=== PATIENT | female | born 1990 | race Caucasian/White ===

== ENCOUNTER 2020-02-23 20:28 | Emergency (ER) | payer OTHER ==
--- NOTE | 2020-02-23 21:15 | ED Physician Documentation ---
History of Present Illness - Stated complaint Stated Complaint: LT EAR PX - Chief complaint Chief Complaint: Heent - History obtained from History obtained from: Patient - History of Present Illness Timing: Prior to arrival, How many days ago (12) - Additonal information Additional information: 30-year-old female comes to the emergency department with about 12 days left ear discomfort. She reports that initially she felt wet or squeaking sensation in the ear and did not think much of it however over the last 4 days the ear has become painful and she has had some associated lymphadenopathy behind her ear. She began using her daughters Neosporin/hydrocortisone eardrops 4 days ago with 3 out relief of symptoms. She denies a history of previous ear infections. No recent swimming or head submersion. She is not a diabetic. No loss of hearing. Review of Systems Constitutional: reports: Reviewed and negative Eyes: reports: Reviewed and negative Ears: reports: Ear pain, Drainage/discharge. denies: Loss of hearing, Tinnitus/ringing, Foreign body Nose: reports: Reviewed and negative Throat: reports: Reviewed and negative Cardiac: reports: Reviewed and negative Respiratory: reports: Reviewed and negative GI: reports: Reviewed and negative : reports: Reviewed and negative PD PAST MEDICAL HISTORY - Past Medical History Past Medical History: No - Past Surgical History Past Surgical History: No - Present Medications Home Medications: Ambulatory Orders Medication Instructions Recorded Confirmed Amoxicillin 500 mg PO TID #30 capsule 02/23/20 - Allergies Allergies/Adverse Reactions: Allergies Allergy/AdvReac Type Severity Reaction Status Date / Time No Known Drug Allergies Allergy Verified 02/23/20 20:44 - Social History Does the pt smoke?: No Smoking Status: Never smoker Does the pt have substance abuse?: No - Immunizations Immunizations are current?: Yes - POLST Patient has POLST: No PD ED PE EXPANDED - General General: Alert, No acute distress - HEENT HEENT: Pharynx normal, Other. No: Tonsillar exudate - Cardiac Cardiac: Regular Rate, Regular Rhythm, Radial strong equal, Cap refill < 2 sec - Respiratory Respiratory: Clear to ausultation mikki. No: Distress, Labored Results - Vitals Vitals: Vital Signs - 24 hr 02/23/20 20:43 Temperature 36.8 C Heart Rate 99 Respiratory 17 Rate Blood Pressure 126/81 H O2 Saturation 100 Oxygen O2 Source Room air PD MEDICAL DECISION MAKING - ED course Complexity details: reviewed results, re-evaluated patient, considered differential, d/w patient ED course: 30-year-old female presents to the emergency department for evaluation of what she believes is a worsening left ear infection. She presumed that she had otitis ex stated lymphadenopathy. On exam I do notice a erythematous left ear canal with a very mild terna due to pain and drainage from the left ear. She has been using her daughter's neomycin/hydrocortisone eardrops for 4 days without resolution of symptoms and she is now beginning to have effusion behind the TM. She does not have malignant otitis externa but does have mild ear canal cellulitis. At this time we will start her on amoxicillin and advised close f/u with pcp Departure - Departure Disposition: 01 Home, Self Care Clinical Impression: Acute effusion of left ear, Cellulitis of left ear canal Condition: Stable Record reviewed to determine appropriate education?: Yes Prescriptions: Amoxicillin 500 mg PO TID #30 capsule Comments: Ana let us have you fill the prescription tomorrow and begin taking the antibiotics. You do not need to continue to use the eardrops anymore as were given you the antibiotics orally. If you have increased pain redness or swelling despite taking the oral antibiotics please return to the emergency department for a second look.
[2020-02-23] MEDS ORDERED: AMOXICILLIN 250 MG CAPSULE PO STA (21:22)
[2020-02-23 21:32] VITALS: BP 124/84
== END 2020-02-23 21:32 | disposition home or self-care (01) ==
LOC: ED 20:28
DX: H92.02 Otalgia, left ear (principal); H60.12 Cellulitis of left external ear
CPT/HCPCS: 99282; 99283; A9270

== ENCOUNTER 2022-07-15 20:13 | Emergency (ER) | payer OTHER ==
--- NOTE | 2022-07-15 22:28 | ED Physician Documentation ---
PD HPI HEENT - Stated complaint Stated Complaint: SINUS PRESSURE/EAR PX - Chief complaint Chief Complaint: Heent - History obtained from History obtained from: Patient - Additional information Additional information: c/o right sinus pain (points to right maxillary sinus area) x 2-3 days. She says she had right-sided facial swelling earlier today but she took benadryl and that seemed to improve the symptoms. She also was experiencing right ear pain; she says earlier today she felt sudden improvement in the right ear pain associated with a small amount of clear fluid discharge from the right ear. She says she also feels that the facial swelling's resolution coincided with the fluid discharge from the right ear. She denies fever. Thinks chances of are unlikely , is on BCP. Denies cough, dyspnea Review of Systems Constitutional: denies: Fever Throat: reports: Sore throat Respiratory: denies: Dyspnea, Cough GI: reports: Reviewed and negative : reports: Control. denies: Dysuria, Frequency PD PAST MEDICAL HISTORY - Past Medical History Past Medical History: No - Past Surgical History Past Surgical History: No - Present Medications Home Medications: Ambulatory Orders Medication Instructions Recorded Confirmed Amoxicillin 500 mg PO TID #30 capsule 02/23/20 Amox/Clav 875/125 [Augmentin 1 tablet PO Q12H 7 Days #14 tablet 07/15/22 875/125 Tab] - Allergies Allergies/Adverse Reactions: Allergies Allergy/AdvReac Type Severity Reaction Status Date / Time No Known Drug Allergies Allergy Verified 07/15/22 20:16 - Social History Does the pt smoke?: No Smoking Status: Never smoker Does the pt have substance abuse?: No - Immunizations Immunizations are current?: Yes - POLST Patient has POLST: No PD ED PE NORMAL - Vitals Vital signs reviewed: Yes - General General: Alert and oriented X 3, No acute distress, Well developed/nourished - HEENT HEENT: Ears normal (no evidence of right TM rupture with good visualization of the TM, normal light reflex, no erythema, no bulging. there is no fluid in the right external auditory canal; left TM WNL. ), Moist mucous membranes, Pharynx benign - Neck Neck: Supple, no meningeal sign - Respiratory Respiratory: No respiratory distress, Clear bilaterally PD ED PE EXPANDED - HEENT HEENT: Other (no facial swelling nor asymmetry. no facial erythema. There is mild/moderate TTP over right maxillary sinus) Results - Vitals Vitals: Oxygen O2 Source Room air PD Medical Decision Making - ED course Complexity details: considered differential, d/w patient ED course: HPI/ROS most c/w right maxillary sinusitis. We discussed options for treatment, specifically antibiotic vs. symptomatic treatment only. She defers to my recommendation, and that is for antibiotic treatment. She is given augmentin in ED and rx for same provided Departure - Departure Disposition: Home, Self Care Clinical Impression: Sinusitis Qualifiers: Sinusitis location: maxillary Chronicity: acute Recurrence: non-recurrent Qualified Code(s): J01.00 - Acute maxillary sinusitis, unspecified Condition: Good Instructions: ED Sinusitis Abx Tx Follow-Up: NELLY HAYES, MSN, ACCOUNT PROCESSOR [Primary Care Provider] - (4-6 days if not improving) Prescriptions: Amox/Clav 875/125 [Augmentin 875/125 Tab] 1 tablet PO Q12H 7 Days #14 tablet Comments: You were given an antibiotic in the emergency department tonight (Augmentin) and a prescription for a 1 week course of this antibiotic has been electronically [facility] bmitted to the [facility] pharmacy in [place]. Discharge Date/Time: 07/15/22 23:00
[2022-07-15] MEDS ORDERED: AMOX/CLAV 875 MG/125 MG TABLET PO STA (22:46)
[2022-07-15 23:01] VITALS: BP 125/71
== END 2022-07-15 23:00 | disposition home or self-care (01) ==
LOC: ED 20:13
DX: J01.00 Acute maxillary sinusitis, unspecified (principal)
CPT/HCPCS: 99282; 99283; A9270

== ENCOUNTER 2023-09-27 08:00 | Outpatient (CLI) | payer OTHER ==
[2023-09-27 16:34] LABS: TOTAL PROTEIN,URINE TIMED < 4 mg/dL
[2023-09-27 16:39] LABS: CREATININE,URINE 32.6 mg/dL
== END 2023-09-27 23:59 | disposition home or self-care (01) ==
LOC: LAB.WC 08:00
PROVIDERS: ATTEND Nurse Practitioner
DX: Z34.90 Encounter for supervision of normal pregnancy, unspecified, unspecified trimester (principal)
CPT/HCPCS: 82570; 84156

== ENCOUNTER 2023-10-14 12:32 | Outpatient (CLI) | payer OTHER ==
--- NOTE | 2023-10-14 14:01 | Ultrasound Report ---
PROCEDURE: OB 1st Trimester w/TV INDICATIONS: POSITIVE TEST OUTSIDE/PRIOR DATING DATA: Last menstrual period (LMP): 07/07/2023. LMP-based estimated date of delivery (KAREN): 04/12/2024. First dating scan (date and location): 10/14/2023. Estimated date of delivery (KAREN) from first dating scan: 05/14/2024. TECHNIQUE: Real-time scanning was performed of the fetus and maternal pelvic organs, with image documentation. Endovaginal scanning was also performed to better visualize the fetus and maternal ovaries. COMPARISON: None. FINDINGS: Intrauterine gestational sac present. Embryo: [place]-rump length measures 2.74 cm. Estimated gestational age based on current study is 9 we eks, 4 days. 2.7 cm yolk sac is seen. Heart rate: 176 bpm. Other: There is a small perigestational hematoma.. Measurement variability in dating: +/- 4 weeks by LMP, +/- 7 days by mean sac diameter (use before 6 weeks gestation if crown-rump length not able to be measured), +/- 5 days by crown-rump length (6-12 weeks gestation). Maternal organs: Right corpus luteum is seen measures 1.2 x 1.4 x 1.1 cm in size. IMPRESSION: 1. Single live intrauterine gestation with fetus and yolk sac seen. heart rate is 176 bpm. Paris[place] mated gestational age weeks, 4 days. 2. Small subchorionic hematoma. 3. Right corpus luteum as above. No adnexal mass or ectopic gestational sac. Reviewed by: Patrice Ely MD on 10/14/2023 2:00 PM PDT Approved by: Patrice Ely MD on 10/14/2023 2:00 PM PDT Station ID: [id number]
== END 2023-10-14 12:33 | disposition home or self-care (01) ==
LOC: DI 12:32
PROVIDERS: ATTEND Obstetrics & Gynecology
DX: O34.81 Maternal care for other abnormalities of pelvic organs, first trimester (principal); N83.11 Corpus luteum cyst of right ovary; O46.8X1 Other antepartum hemorrhage, first trimester; Z3A.09 9 weeks gestation of pregnancy

== ENCOUNTER 2023-10-30 08:00 | Outpatient (CLI) | payer OTHER ==
[2023-10-30 22:51] LABS: CHLAMYDIA TRACHOMATIS DNA NEGATIVE (NEGATIVE); NEISSERIA GONORRHOEAE DNA NEGATIVE (NEGATIVE); TRICHOMONAS VAGINALIS DNA NEGATIVE (NEGATIVE)
== END 2023-10-30 23:59 | disposition home or self-care (01) ==
LOC: LAB.WC 08:00
PROVIDERS: ATTEND Obstetrics & Gynecology
DX: O09.522 Supervision of elderly multigravida, second trimester (principal); Z11.3 Encounter for screening for infections with a predominantly sexual mode of transmission
CPT/HCPCS: 36415; 80053; 85025; 86592; 86762; 86787; 86803; 86850; 86900; 86901; 87340; 87389; 87491; 87591; 87661

== ENCOUNTER 2023-10-30 10:49 | Outpatient (CLI) | payer OTHER ==
[2023-10-30 11:14] LABS: BASOPHILS # (AUTO) 0.1 10^3/uL (0.0-0.1); BASOPHILS % (AUTO) 0.6 %; EOSINOPHILS # (AUTO) 0.3 10^3/uL (0.0-0.7); EOSINOPHILS % (AUTO) 3.9 %; HGB - HEMOGLOBIN 11.7 g/dL (12.0-16.0); LYMPHOCYTES # (AUTO) 1.6 10^3/uL (1.5-3.5); LYMPHOCYTES % (AUTO) 20.8 %; MEAN CORPUSCULAR HEMOGLOBIN 29.5 pg (27.0-31.0); MEAN CORPUSCULAR HGB CONC 32.5 g/dL (32.0-36.0); MEAN CORPUSCULAR VOLUME 90.7 fL (81.0-99.0); MEAN PLATELET VOLUME 9.6 fL (7.9-10.8); MONOCYTES # (AUTO) 0.5 10^3/uL (0.0-1.0); MONOCYTES % (AUTO) 6.4 %; NEUTROPHILS # (AUTO) 5.3 10^3/uL (1.5-6.6); NEUTROPHILS % (AUTO) 67.8 %; PLT - PLATELET COUNT 271 10^3/uL (130-450); RED BLOOD COUNT 3.97 10^6/uL (4.20-5.40); RED CELL DISTRIBUTION WIDTH 12.4 % (12.0-15.0); WHITE BLOOD COUNT 7.9 x10^3/uL (4.8-10.8)
[2023-10-30 11:28] LABS: ALBUMIN/GLOBULIN RATIO 1.5 (1.0-2.2); BILIRUBIN,TOTAL 0.3 mg/dL (0.2-1.0); CALCIUM 9.7 mg/dL (8.5-10.3); CREATININE 0.6 mg/dL (0.6-1.3); POTASSIUM 3.8 mmol/L (3.5-4.5); TOTAL PROTEIN 6.6 g/dL (6.4-8.9)
[2023-10-31 03:11] LABS: HBsAG SCREEN Negative (Negative)
[2023-10-31 06:10] LABS: HIV SCREEN 4TH GENERATION Non Reactive (Non Reactive); RPR Non Reactive (Non Reactive)
[2023-10-31 08:09] LABS: VARICELLA-ZOSTER AB IGG 2972 index (Immune >165)
[2023-11-02 01:07] LABS: HCV AB Non Reactive (Non Reactive)
== END 2023-10-30 10:50 | disposition home or self-care (01) ==
LOC: LAB 10:49
PROVIDERS: ATTEND Obstetrics & Gynecology
DX: O09.522 Supervision of elderly multigravida, second trimester (principal)
CPT/HCPCS: 36415; 80053; 85025; 86592; 86762; 86787; 86803; 86850; 86900; 86901; 87340; 87389

== ENCOUNTER 2023-12-26 18:30 | Outpatient (CLI) | payer OTHER ==
--- NOTE | 2023-12-27 15:53 | Ultrasound Report ---
PROCEDURE: OB Anatomy Scan INDICATIONS: SUPERVISION OF OUTSIDE/PRIOR DATING DATA: Last menstrual period (LMP): 07/07/2023. LMP-based estimated date of delivery (KAREN): 04/12/2024. First dating scan (date and location): 10/14/2023. Estimated date of delivery (KAREN) from first dating scan: 05/14/2024. The below data below was generated using the ultrasound KAREN of 05/14/2024 TECHNIQUE: Real-time scanning was performed of the fetus, with image documentation and biometric measurements. Endovaginal scanning: Not performed. COMPARISON: 10/14/2023 FINDINGS: General: A single living intrauterine gestation is present. Presentation: Variable Placenta: Placental position is anterior, without previa. Amniotic fluid index: 13.2 cm, within normal limits for gestational age. heart rate: 141 beats per minute. Maternal cervical canal: 5.7 cm long; normal length is 2.5 cm or more. biometrics: Biparietal diameter: 4.7 cm, 20 weeks 1 day, 59th percentile Head circumference: 18.3 cm, 20 weeks 5 days, 73.5 percentile Abdominal circumference: 16.4 cm, 21 weeks 3 days, 86.9 percentile Femur length: 3.32 cm, 20 weeks 3 days, 56.7 percentile Estimated gestational age from initial scan: 20 weeks 0 days Composite gestational age from present scan: 20 weeks 3 days Estimated weight and percentile: 386.4 g, 90.6 percentile Measurement variability in biometric dating: +/- 10 days from 12-20 weeks gestation, +/- 2 weeks from 20-30 weeks gestation, +/- 3 weeks at 30 weeks gestation or later. Anatomic survey: Neuro: Ventricles are normal at less than 10 mm. Cisterna magna is normal at 3-11 mm. Cerebellum i s normal in size and morphology. Nuchal skin fold: Normal at less than 6 mm between 14 and 20 weeks gestational age. Face: Not well visualized. Spine: No evidence for spina bifida. Heart: 4-chambered heart is present, with normal ventricular outflow tracts. Diaphragm: Diaphragm is intact. Stomach: Left-sided stomach is present. Kidneys: No hydronephrosis. Normal is less than 5 mm in 2nd trimester, less than 7 mm in 3rd trimester. Cord: 3 vessel cord has orthotopic insertion. Bladder: Normal in size. Extremities: All 4 extremities are visualized. IMPRESSION: Single living intrauterine at 20 weeks 0 days, KAREN of 05/14/2024. Estimated weight of 386 g, 91st percentile. Facial structures not well visualized due to position. Consider short-term follow-up. Remaining anatomy survey is normal. Reviewed by: Crow Kaiser MD on 12/27/2023 3:52 PM PDT Approved by: Crow Kaiser MD on 12/27/2023 3:52 PM PDT Station ID: [id number]
== END 2023-12-26 18:31 | disposition home or self-care (01) ==
LOC: DI 18:30
PROVIDERS: ATTEND Obstetrics & Gynecology
DX: O09.522 Supervision of elderly multigravida, second trimester (principal); Z3A.20 20 weeks gestation of pregnancy

== ENCOUNTER 2024-01-17 13:20 | Outpatient (CLI) | payer OTHER ==
--- NOTE | 2024-01-17 17:25 | Ultrasound Report ---
PROCEDURE: OB Follow up INDICATIONS: SUPERVISION OF OUTSIDE/PRIOR DATING DATA: Last menstrual period (LMP): 07/07/2023. LMP-based estimated date of delivery (KAREN): 04/12/2024. First dating scan (date and location): 10/14/2023. Estimated date of delivery (KAREN) from first dating scan: 05/14/2024. The below data below was generated using the ultrasound KAREN of 05/14/2024 TECHNIQUE: Real-time scanning was performed of the fetus, with image documentation and biometric measurements. Endovaginal scanning: Not performed. COMPARISON: 12/26/2023 FINDINGS: General: A single living intrauterine gestation is present. Presentation: Variable Placenta: Placental position is anterior fundal, without previa. Amniotic fluid index: 15.7 cm, within normal limits for gestational age. heart rate: 148 beats per minute. Maternal cervical canal: 6.9 cm long; normal length is 2.5 cm or more. Estimated gestational age from initial scan: 23 weeks and 1 day Other: Reevaluation of the facial profile still challenging to visualize secondary to pos itioning. No gross abnormalities identified. IMPRESSION: Single living intrauterine gestation with estimated gestational age of approximately 22 weeks and 1 d ay. Evaluation of facial profile still suboptimal secondary to positioning. No gross abnormal ity seen. Consider follow-up imaging. Four-quadrant ALEXANDER measuring 15.7 cm (60th percentile for gestational age) with largest vertical pocke t measuring 4.5 cm. Reviewed by: Zain Robertson MD on 01/17/2024 4:24 PM JYOTI Approved by: Zain Robertson MD on 01/17/2024 4:24 PM AKCONCEPCIÓN Station ID: [id number]
== END 2024-01-17 13:21 | disposition home or self-care (01) ==
LOC: DI 13:20
PROVIDERS: ATTEND Obstetrics & Gynecology
DX: O99.212 Obesity complicating pregnancy, second trimester (principal); O09.522 Supervision of elderly multigravida, second trimester; Z3A.22 22 weeks gestation of pregnancy

== ENCOUNTER 2024-05-11 08:04 | Inpatient (IN) ==
[2024-05-11] MEDS ORDERED: miSOPROStoL 200 MCG TABLET BC PRN (08:46)
[2024-05-11] MEDS ORDERED: TERBUTALINE 1 MG/ML VIAL SUBQ PRN (08:46)
[2024-05-11] MEDS ORDERED: lidocaine 1% 20 ML MDV ID PRN (08:46)
[2024-05-11] MEDS ORDERED: miSOPROStoL 200 MCG TABLET PR PRN (08:46)
[2024-05-11] MEDS ORDERED: OXYTOCIN/SODIUM CHLORIDE 500 ML IV PRN ×2 (08:46→22:06)
[2024-05-11] MEDS ORDERED: SODIUM CHLORIDE FLUSH 0.9% 10 ML SYRINGE IVP PRN (08:46)
[2024-05-11] MEDS ORDERED: NIFEdipine 10 MG CAPSULE PO PRN ×2 (08:46→22:06)
[2024-05-11] MEDS ORDERED: hydrALAZINE INJ 20 MG/ML VIAL IVP PRN ×3 (08:46→22:06)
[2024-05-11] MEDS ORDERED: OXYTOCIN 10 UNIT/ML VIAL IM PRN (08:46)
[2024-05-11] MEDS ORDERED: fentaNYL 100 MCG/2 ML VIAL IVP PRN (08:46)
[2024-05-11] MEDS ORDERED: LABETALOL 20 MG/4 ML SYRINGE IVP PRN ×5 (08:46→22:06)
[2024-05-11] MEDS: SODIUM CHLORIDE FLUSH 0.9% 10 ML SYRINGE IVP SCH (09:00)
[2024-05-11 09:31] LABS: BASOPHILS % (AUTO) 0.7 %; EOSINOPHILS # (AUTO) 0.2 10^3/uL (0.0-0.7); EOSINOPHILS % (AUTO) 3.6 %; HCT - HEMATOCRIT 36.1 % (37.0-47.0); LYMPHOCYTES # (AUTO) 0.9 10^3/uL (1.5-3.5); LYMPHOCYTES % (AUTO) 16.7 %; MEAN CORPUSCULAR HEMOGLOBIN 30.3 pg (27.0-31.0); MEAN CORPUSCULAR HGB CONC 33.2 g/dL (32.0-36.0); MEAN CORPUSCULAR VOLUME 91.2 fL (81.0-99.0); MEAN PLATELET VOLUME 10.8 fL (7.9-10.8); MONOCYTES # (AUTO) 0.5 10^3/uL (0.0-1.0); MONOCYTES % (AUTO) 8.7 %; NEUTROPHILS # (AUTO) 3.9 10^3/uL (1.5-6.6); NEUTROPHILS % (AUTO) 68.5 %; PLT - PLATELET COUNT 206 10^3/uL (130-450); RED BLOOD COUNT 3.96 10^6/uL (4.20-5.40); WHITE BLOOD COUNT 5.6 x10^3/uL (4.8-10.8)
[2024-05-11] MEDS: AMPICILLIN 2 GM in SODIUM CHLORIDE 0.9% MINIBAG 100 ML IV ONE (10:05)
[2024-05-11] MEDS: LACTATED RINGERS 1,000 ML IV PRN (10:05)
[2024-05-11] MEDS: OXYTOCIN/SODIUM CHLORIDE 500 ML IV SCH (10:05)
--- NOTE | 2024-05-11 13:33 | HISTORY & PHYSICAL EXAMINATION ---
Admit History Visit Reason Visit Reason: Other (IOL) Smoking Status: Former smoker Other Maternal History Other Maternal History: Ana is a 34 yo who presents for induction of labor. Feeling well. Reports irregular ctx. No LOF, VB. Last growth US 04/08/24: 2504 g, 46th percentile, vertex, anterior placenta monitoring form, copied from record: 33 yo LMP: 07/07/23 KAREN by LMP: 04/12/24 US:10/14/23 @ 9+4 NOT c/w LMP Final KAREN: 05/14/2024 FOB Sekou, same as first 2 who are in high school. he is in [place]. she is home mom. 2 prior vaginal deliveries no complications. 06/05 Alexandru, 01/05 Joelle. largest [id number]. this baby girl named Shauna TSE, Obesity. recommend weight gain 10 pounds, daily exercise. growth scan ordered 03/06. LD-ASA ordered, HbA1c ordered, preE baseline labs ordered plan induction 05/11. Pre- Weight:201.6 BMI: 33.67 Blood type: A+ Antibody: Negative CBC: PLT 271 HCT 36.0 HGB 11.7 RUB: Immune VZV: Immune HBsAg: Negative HepC: NR RPR/AB-EIA: NR HIV: NR PAP:10/05/22 - normal GC/CT: 10/30/2023 Negative HSV:denies in self in partner Genetic testin10/30/2023 MaterniT Negative girl. AFP didn't get Covid: declines vaccine 12/24. Flu: declines vaccine 12/24 hard no. RSV: Next visit FAS: 01/17/2024 Placenta: Anterior Fundal Cord: 3VC ALEXANDER: 15.7cm EFW: 386.4g 90.6 F/U ordered for suboptimal facial profile F/U 02/13- complete and WNL 50gm OGCT:174- discussed 3HR GTT: 90 197, 139, 79. Dexcom placed 03/06 to help her learn her triggers. Daily exercise encouraged. TDAP:02/18 Breast Pump:web site given RPR- NR 3rd trimester H/H 10.7/33.4/284 GBS: positive. PE: Vitals signs reviewed in [facility] Gen: NAD CV: RRR Resp: non labored respirations Chest: non labored respirations Abd: gravid, non tender. EFW 3800g Ext: trace LE edema SVE: 30/ballotable Bedside US: cephalic presentation confirmed monitoring: FHTs: 140s bpm baseline, + accel, - decel, mod variability. Omro: irregular, not painful FHTs: Cat 1 Labs: admission labs reviewed A/P: Ana is a 34 yo at 39w4d who is admitted for IOL. - IOL - GBS pos - AMA - BMI 39 - Rh+ - Rubella/varicella immune - Plan for IOL. IOL consents reviewed and signed. - Start ampicillin. - Discussed starting IOL with pitocin, followed by possible AROM once able after second dose of antibiotics. She does agree with plan. - Pain management per patient request Aelx Garrido MD HPI Current : Vital Signs Temperature 98.4 F 05/11/24 08:18 Pulse Rate 95 05/11/24 08:18 Respiratory Rate 16 05/11/24 08:18 Blood Pressure 125/77 05/11/24 08:18 Meds/Allgy Home Medications Ambulatory Orders Medication Instructions Recorded Confirmed aspirin 81 mg tablet,delayed 81 mg PO DAILY 02/02/24 04/30/24 release vits no.126-ferrous fum 1 tab PO QDAY 02/19/24 04/30/24 28 mg iron-folic acid 800 mcg tablet (Classic ) ferrous sulfate 325 mg (65 mg 325 mg PO .every other day 03/06/24 04/30/24 iron) tablet Allergies Allergies Allergy/AdvReac Type Severity Reaction Status Date / Time apricot kernel oil Allergy Unknown Unknown Verified 04/10/24 10:12 venom-wasp Allergy Anaphylaxis Verified 04/10/24 10:12 APPLES Allergy Unknown Unknown Uncoded 04/10/24 10:12 BANANAS Allergy Unknown Unknown Uncoded 04/10/24 10:12 PENDING SALE TO [facility] Medical History Medical History (Updated 04/19/24 @ 09:00 by Doris Neumann MD) Miscarriage (~01/15/08) No pertinent past medical history Vaginal delivery x 2, 01/20/09. Surgical History Surgical History (Updated 02/04/24 @ 14:04 by Shante Martinez, RN, BSN) No pertinent past surgical history Family History Family History (Updated 03/25/24 @ 14:27 by Doris Neumann MD) Father Diabetes Asthma High blood pressure Mother Cervical cancer Uncle Heart attack Social History Social History (Updated 02/03/24 @ 16:44 by Geeta Prado MA) Smoking Status: Former smoker Number of Years Smoked: 15 Do you vape?: Yes Patient requests smoking cessation consult: No Initiate information on smoking cessation: No Living arrangement: At home Marital Status: Living Condition: With spouse/s.o. Relationship: Do you feel safe in your home environment?: Yes Suffered physical, verbal, emotional, or financial abuse?: No History of Abuse: No POLST Patient has POLST: No Physical Abdominal Exam Vital Signs: Temp Pulse Resp BP 98.4 F 95 16 125/77 05/11/24 08:18 05/11/24 08:18 05/11/24 08:18 05/11/24 08:18 Plan for Labor Plan For Labor I expect patient to be DC'd or transferred within 96 hours.: Yes Conclusion/Plan Lab Results 05/11/24 09:00
--- NOTE | 2024-05-11 13:50 | PHARMACY PROGRESS NOTE ---
Best Possible Medication History Admit Date and Time: 05/11/24 [id number] Home Medications Medication Instructions Recorded Confirmed Type aspirin 81 mg tablet,delayed 81 mg PO DAILY 02/02/24 05/11/24 History release vits no.126-ferrous fum 1 tab PO QDAY 02/19/24 05/11/24 History 28 mg iron-folic acid 800 mcg tablet (Classic ) ferrous sulfate 325 mg (65 mg 325 mg PO .every other day 03/06/24 05/11/24 History iron) tablet Processed by: Pharmacy Medications reviewed in ED?: No Medication History completed: Yes Patient Interview: Completed Secondary Source(s): Insurance records [facility] Statement: As the person ultimately responsible for medication therapy, providers are able to order a medication from an existing home medication list in [facility] via the "Reconcile Routine" prior to Confirmation of that medication by account support rep. Such practice is discouraged except when the physician, in their clinical judgme nt, deems that a medical need exists for a medication without regard to previous use.
[2024-05-11] MEDS: AMPICILLIN 1 GM in SODIUM CHLORIDE 0.9% MINIBAG 100 ML IV SCH (14:19)
--- NOTE | 2024-05-11 15:46 | MISCELLANEOUS PROVIDER NOTE ---
Miscellaneous Provider Note - Note: Ana was examined at bedside for possible AROM. SVE unchanged. She did agree to proceed with AROM which was performed with clear fluid. Will continue pitocin augmentation. Discussed repeat SVE in 4 hrs or sooner PRN. Alex Garrido MD
[2024-05-11] MEDS ORDERED: ROPIVACAINE 0.2% 200 MG/100 ML BAG EP ONE (18:27)
[2024-05-11] MEDS ORDERED: LIDOCAINE 2%-EPI 1:100000 20 ML MDV ONE (18:28)
--- NOTE | 2024-05-11 19:17 | ANESTHESIA PROCEDURE NOTE ---
Pre-Anesthesia VS, & Labs Diagnosis Surgical Diagnosis:: labor pain Procedure Procedure: labor epidural Vitals Vital Signs: Temp Pulse Resp BP 36.9 C 95 16 125/77 05/11/24 08:18 05/11/24 08:18 05/11/24 08:18 05/11/24 08:18 NPO NPO: Other Is Patient ?: Yes Lab Results Current Lab Results: Laboratory Tests 05/11/24 09:00: WBC 5.6, RBC 3.96 L, Hgb 12.0, Hct 36.1 L, MCV 91.2, MCH 30.3, MCHC 33.2, RDW 13.0, Plt Count 206, MPV 10.8, Neut # (Auto) 3.9, Lymph # (Auto) 0.9 L, [place]hin # (Auto) 0.5, Eos # (Auto) 0.2, Baso # (Auto) 0.0, Absolute Nucleated RBC 0.00, Nucleated RBC % 0.0, Blood Type A POSITIVE, Antibody Screen NEGATIVE 05/11/24 09:00 Meds/Allgy Home Medications Ambulatory Orders Medication Instructions Recorded Confirmed aspirin 81 mg tablet,delayed 81 mg PO DAILY 02/02/24 05/11/24 release vits no.126-ferrous fum 1 tab PO QDAY 02/19/24 05/11/24 28 mg iron-folic acid 800 mcg tablet (Classic ) ferrous sulfate 325 mg (65 mg 325 mg PO .every other day 03/06/24 05/11/24 iron) tablet Allergies Allergies Allergy/AdvReac Type Severity Reaction Status Date / Time apricot kernel oil Allergy Unknown Unknown Verified 04/10/24 10:12 venom-wasp Allergy Anaphylaxis Verified 04/10/24 10:12 APPLES Allergy Unknown Unknown Uncoded 04/10/24 10:12 BANANAS Allergy Unknown Unknown Uncoded 04/10/24 10:12 [facility] Medical History Medical History (Updated 04/19/24 @ 09:00 by Doris Neumann MD) Miscarriage (~01/15/08) Vaginal delivery x 2, 01/20/09. No pertinent past medical history Surgical History Surgical History (Updated 02/04/24 @ 14:04 by Shante Martinez, RN, BSN) No pertinent past surgical history Family History Family History (Updated 03/25/24 @ 14:27 by Doris Neumann MD) Father Diabetes Asthma High blood pressure Mother Cervical cancer Uncle Heart attack Social History Social History (Updated 02/03/24 @ 16:44 by Geeta Prado MA) Smoking Status: Former smoker Number of Years Smoked: 15 Do you vape?: Yes Patient requests smoking cessation consult: No Initiate information on smoking cessation: No Living arrangement: At home Marital Status: Living Condition: With spouse/s.o. Relationship: Do you feel safe in your home environment?: Yes Suffered physical, verbal, emotional, or financial abuse?: No History of Abuse: No POLST Patient has POLST: No Anesthesia Exam (Expanded) Exam General: Alert, Oriented x3 and Cooperative Dental: WNL Mouth Openin Fingerbreadth Mallampati classification: III Thyromental Distance: less than 4 cm Respiratory: Lungs clear Cardiovascular: Regular rate Plan Plan Anesthesia Type: Epidural Consent for Procedure(s) Verified and Reviewed: Yes Code Status: Attempt Resuscitation ASA Classification ASA classification: 3-Severe systemic disease Is this case an emergency?: No
[2024-05-11] MEDS ORDERED: LIDOCAINE-MPF 1% 5 ML VIAL ONE (19:21)
[2024-05-11] MEDS ORDERED: ROPIVACAINE 0.2% 200 MG/100 ML BAG EP PRN (19:25)
[2024-05-11] MEDS ORDERED: NALOXONE 0.4 MG/ML VIAL IVP PRN (19:25)
[2024-05-11] MEDS ORDERED: ePHEDrine 50 MG/ML VIAL IVP PRN (19:25)
[2024-05-11] MEDS ORDERED: METOCLOPRAMIDE 10 MG/2 ML VIAL IVP PRN (19:25)
[2024-05-11] MEDS ORDERED: diphenhydrAMINE INJ 50 MG/ML VIAL IVP PRN (19:25)
[2024-05-11] MEDS ORDERED: NALBUPHINE 10 MG/ML AMP IVP PRN (19:25)
[2024-05-11] MEDS ORDERED: LABETALOL 5 MG/1 ML 20 ML MDV IVP PRN (22:06)
--- NOTE | 2024-05-11 22:14 | DELIVERY NOTE ---
Delivery Note Labor Labor: positive Induced by oxytocin Infant Delivery Method Delivery Method: positive Spontaneous vaginal delivery Presentation Presentation: positive Vertex and OA - occiput anterior Nuchal Cord Nuchal Cord: positive None Amniotic Fluid Description Amniotic Fluid Description: positive Clear Episiotomy Type Episiotomy Type: positive None Laceration Laceration: positive None Delivery Outcome Delivery Date: 05/11/24 Delivery Time: 21:25 Gerald: positive Placed in direct skin contact with mother, Stimulated and [place] used sex: positive Female Cord Cord: positive 3 vessels Placenta Placenta: positive Intact and Spontaneous Estimated Blood Loss Estimated Blood Loss (in cc): 600 Post Delivery Events Post Delivery Events: positive Hemorrhage and Shoulder dystocia Delivery Comments (Free Text/Narrative) Delivery Comments (Free Text/Narrative): 34 yo now 3 at 39w2d induced this am. Oxytocin was given for induction of labor. AROM was performed with her 2nd dose of Ampicillin. She went from 4 to 9 cm and then got her epidural, took a nap and was complete. Her max pitocin infusion as 5 mu. She pushed for just under 20 minutes. Baby was OA. As baby's head was delivered, it pretty much got stuck at the chin. We put her head down, and the chin came out. Mom's legs were pulled back further and some pressure was applied suprapubically toward her left. This helped the baby move along in the pelvis and come out. During this time, I was providing on and off downward pressure gently. And was able to help move the anterior left shoulder in a clockwise direction. Mostly it seemed baby needed a bit of time to move in the right directions on her own. Her little face/head got quite purple during this time but then became a more normal color after delivery. Baby was placed on mom's belly and did well. Apgars are 8/8. Weight is still pending. Baby is a girl named Shauna. after about 2 min cord was clamped and cut by Sekou. Both Grandmas were then as well. Pitocin was turned up and placenta was delivered with gentle traction. Uterus contracted well and there were no lacerations. After delivery there was at least 550 of amniotic fluid in the bag. After all was complete, it was about 1500 cc. It did not seem like she bled that much at all. There seemed to be even more fluid as well as some blood. I called blood loss 600 cc. Patient and baby are resting well, surrounded by family.
[2024-05-11] MEDS: TRANEXAMIC ACID IN NACL 1,000 MG/100 ML BAG IV PRN (23:19)
[2024-05-11] MEDS: METHYLERGONOVINE 0.2 MG/ML VIAL IM PRN (23:21)
[2024-05-12] MEDS: ACETAMINOPHEN 500 MG TABLET PO PRN ×2 (00:11→09:57)
[2024-05-12] MEDS: ONDANSETRON 4 MG/2 ML VIAL IVP PRN (01:01)
[2024-05-12] MEDS: fentaNYL 100 MCG/2 ML VIAL IVP STA (02:42)
[2024-05-12] MEDS ORDERED: SODIUM CHLORIDE FLUSH 0.9% 10 ML SYRINGE IVP PRN (03:30)
--- NOTE | 2024-05-12 03:47 | PROVIDER PROGRESS NOTE ---
Subjective Subjective Subjective: cramps, lots of bleeding. urinating alot. Current Medications Current Medications Current Medications: Current Medications Generic Name Dose Route Start Last Admin Trade Name Freq PRN Reason Stop Dose Admin Acetaminophen 1,000 mg 05/11/24 08:46 05/12/24 00:11 Acetaminophen 500 Mg Tablet PO 1,000 mg Q8H PRN Administration Mild Pain or Fever>38C(100.4F) Acetaminophen 1,000 mg 05/11/24 22:06 Acetaminophen 500 Mg Tablet PO Q8HR PRN Mild Pain or Fever>38C(100.4F) Diphenhydramine HCl 12.5 - 25 mg 05/11/24 19:25 Diphenhydramine Inj 50 Mg/Ml Vial IVP Q6HR PRN ITCHING Diphenhydramine HCl 25 mg 05/12/24 04:00 Diphenhydramine Inj 50 Mg/Ml Vial IVP .ONCE MELIA Docusate Sodium 100 mg 05/12/24 09:00 Docusate Sodium 100 Mg Capsule PO BID MELIA Ephedrine Sulfate 5 mg 05/11/24 19:25 Ephedrine 50 Mg/Ml Vial IVP Q5M PRN For SBP<100;give until SBP>100 Hydralazine HCl 5 - 10 mg 05/11/24 08:46 Hydralazine Inj 20 Mg/Ml Vial IVP Q20M PRN SBP> or= 160 OR DBP> or= 110 Protocol Hydralazine HCl 10 mg 05/11/24 22:06 Hydralazine Inj 20 Mg/Ml Vial IVP .ONCE PRN SBP> or= 160 OR DBP> or= 110 Protocol Hydralazine HCl 5 - 10 mg 05/11/24 22:06 Hydralazine Inj 20 Mg/Ml Vial IVP Q20M PRN SBP >=160 and/or DBP >=110 Protocol Lactated Ringer's 500 mls @ 999 mls/hr 05/11/24 08:46 05/11/24 18:57 Lr IV 125 mls/hr PRN PRN Administration Abdominal Pain Oxytocin/Sodium Chloride 500 mls @ 999 mls/hr 05/11/24 08:46 Pitocin/Sodium Chloride IV PRN PRN POST- HEMORR PREVENTION Protocol 999 MILLIUNIT/MIN Tranexamic Acid 1,000 mg in 100 mls @ 600 mls/hr 05/11/24 08:46 05/11/24 23:30 Tranexamic 1,000 Mg/100ml-Nacl IV Infused Q30M PRN Infusion EBL >1200mL and within 3hr Oxytocin/Sodium Chloride 500 mls @ 1 mls/hr 05/11/24 10:00 05/11/24 21:29 Pitocin/Sodium Chloride IV 999 milliunit/min TITR MELIA 999 mls/hr Titration Protocol 1 MILLIUNIT/MIN Ampicillin Sodium 1 gm/ Sodium 100 mls @ 200 mls/hr 05/11/24 14:00 05/11/24 19:54 Chloride IV Infused Q4H MELIA Infusion Ropivacaine 200 mg in 100 mls @ 0 mls/hr 05/11/24 19:25 Naropin 0.2% EP PRN PRN PAIN Protocol Per Protocol Oxytocin/Sodium Chloride 500 mls @ 999 mls/hr 05/11/24 22:06 Pitocin/Sodium Chloride IV PRN PRN POST- HEMORR PREVENTION Protocol 999 MILLIUNIT/MIN Ibuprofen 600 mg 05/11/24 22:06 Ibuprofen 600 Mg Tablet PO Q6HR PRN Moderate Pain (Level 4-6) Labetalol HCl 20 - 80 mg 05/11/24 08:46 Labetalol 20 Mg/4 Ml Syringe IVP Q10M PRN SBP> or= 160 OR DBP> or= 110 Protocol Labetalol HCl 20 mg 05/11/24 08:46 Labetalol 20 Mg/4 Ml Syringe IVP .ONCE PRN SBP> or= 160 OR DBP> or= 110 Protocol Labetalol HCl 20 - 40 mg 05/11/24 08:46 Labetalol 20 Mg/4 Ml Syringe IVP Q10M PRN SBP> or= 160 OR DBP> or= 110 Protocol Labetalol HCl 20 - 80 mg 05/11/24 22:06 Labetalol 5 Mg/1 Ml 20 Ml Mdv IVP Q10M PRN SBP> or= 160 OR DBP> or= 110 Protocol Labetalol HCl 20 - 40 mg 05/11/24 22:06 Labetalol 20 Mg/4 Ml Syringe IVP Q10M PRN SBP> or= 160 OR DBP> or= 110 Protocol Labetalol HCl 20 mg 05/11/24 22:06 Labetalol 20 Mg/4 Ml Syringe IVP .ONCE PRN SBP >=160 and/or DBP >=110 Protocol Lidocaine HCl 20 ml 05/11/24 08:46 Lidocaine 1% 20 Ml Mdv ID 05/14/24 08:46 .ONCE PRN PERINEAL REPAIR Metoclopramide HCl 10 mg 05/11/24 19:25 Metoclopramide 10 Mg/2 Ml Vial IVP Q6HR PRN Nausea / Vomiting Misoprostol 600 mcg 05/11/24 08:46 Misoprostol 200 Mcg Tablet BC .ONCE PRN Hemorrhage Misoprostol 800 mcg 05/11/24 08:46 Misoprostol 200 Mcg Tablet WI .ONCE PRN Hemorrhage Nalbuphine HCl 2.5 - 5 mg 05/11/24 19:25 Nalbuphine 10 Mg/Ml Amp IVP Q4H PRN ITCHING Naloxone HCl 0.1 mg 05/11/24 19:25 Naloxone 0.4 Mg/Ml Vial IVP Q2M PRN RR<8 Nifedipine 10 - 20 mg 05/11/24 08:46 Nifedipine 10 Mg Capsule PO Q20M PRN SBP> or= 160 OR DBP> or= 110 Protocol Nifedipine 10 - 20 mg 05/11/24 22:06 Nifedipine 10 Mg Capsule PO Q20M PRN SBP >=160 and/or DBP >=110 Protocol Ondansetron HCl 4 mg 05/11/24 19:25 05/12/24 01:01 Ondansetron 4 Mg/2 Ml Vial IVP 4 mg Q6HR PRN Administration Nausea / Vomiting Oxytocin 10 unit 05/11/24 08:46 Oxytocin 10 Unit/Ml Vial IM .ONCE PRN Step One if no IV access. Simethicone 80 mg 05/11/24 22:06 Simethicone Chew 80 Mg Tablet PO TID PRN Gas Sodium Chloride 10 ml 05/11/24 08:46 Sodium Chloride Flush 0.9% 10 Ml Syringe IVP PRN PRN NEEDED PER PROVIDER ORDERS Sodium Chloride 10 ml 05/11/24 09:00 05/11/24 17:00 Sodium Chloride Flush 0.9% 10 Ml Syringe IVP Not Given Q8H MELIA Sodium Chloride 10 ml 05/12/24 03:30 Sodium Chloride Flush 0.9% 10 Ml Syringe IVP PRN PRN NEEDED PER PROVIDER ORDERS Terbutaline Sulfate 0.25 mg 05/11/24 08:46 Terbutaline 1 Mg/Ml Vial SUBQ .ONCE PRN Tachystole Objective Vital Signs/Intake & Output Vital Signs: Vital Signs x48h Temp Pulse Resp BP Pulse Ox 05/12/24 03:29 37.5 C 126 H 18 106/70 97 Intake & Output: Intake & Output 05/09/24 05/10/24 05/11/24 05/12/24 23:59 23:59 23:59 23:59 Intake Total 951 / 951 Output Total 750 / 750 620 / 620 Balance 201 / 201 -620 / -620 Weight (kg) 238 lb 2.011 oz Objective General Appearance: positive No acute distress and Alert Respiratory: positive No respiratory distress Cardiovascular: positive Regular rate & rhythm (to sinus tachycardia) Abdomen: positive Non-tender Comments/Other: fentanyl given. bimanual exam with large amount of clots coming from uterus. I was then able to remove a 4 cm clump of placental tissue. Ring forceps was used to remove more tissue. Bleeding slowed. Ultrasound was done and at first I thought I saw more tissue then I did not. Minimal clot with next check. total loss up to 2500 cc. Lab Results 05/11/24 09:00 Other Labs: Lab Results x24hrs 05/11/24 Range/Units 09:00 WBC 5.6 (4.8-10.8) x10^3/uL RBC 3.96 L (4.20-5.40) 10^6/uL Hgb 12.0 (12.0-16.0) g/dL Hct 36.1 L (37.0-47.0) % MCV 91.2 (81.0-99.0) fL MCH 30.3 (27.0-31.0) pg MCHC 33.2 (32.0-36.0) g/dL RDW 13.0 (12.0-15.0) % Plt Count 206 (130-450) 10^3/uL MPV 10.8 (7.9-10.8) fL Neut # (Auto) 3.9 (1.5-6.6) 10^3/uL Lymph # (Auto) 0.9 L (1.5-3.5) 10^3/uL Posey # (Auto) 0.5 (0.0-1.0) 10^3/uL Eos # (Auto) 0.2 (0.0-0.7) 10^3/uL Baso # (Auto) 0.0 (0.0-0.1) 10^3/uL Absolute Nucleated RBC 0.00 x10^3/uL Nucleated RBC % 0.0 /100WBC Blood Type A POSITIVE Antibody Screen NEGATIVE Assessment/Plan Problem List (1) hemorrhage: Impression: extra lobe of placenta removed. Loss up to 2500 cc. 1000 cc was with last exam. Patient is just getting tachycardic. will transfuse 2 units. will watch. I think I got all the tissue out. If she continues to bleed heavily she will need to go to OR. I would not place a device as retained tissue is the cause of bleeding and this would need to be addressed surgically. will give antibiotics and continue pitocin, and start oral methergine. Qualifiers: hemorrhage type: third-stage Qualified Code(s): O72.0 - Third-stage hemorrhage
[2024-05-12 03:54] LABS: HCT - HEMATOCRIT 26.7 % (37.0-47.0); HGB - HEMOGLOBIN 8.7 g/dL (12.0-16.0); MEAN CORPUSCULAR HEMOGLOBIN 29.7 pg (27.0-31.0); MEAN CORPUSCULAR HGB CONC 32.6 g/dL (32.0-36.0); MEAN CORPUSCULAR VOLUME 91.1 fL (81.0-99.0); MEAN PLATELET VOLUME 10.8 fL (7.9-10.8); RED BLOOD COUNT 2.93 10^6/uL (4.20-5.40); RED CELL DISTRIBUTION WIDTH 12.9 % (12.0-15.0)
[2024-05-12] MEDS ORDERED: SODIUM CHLORIDE 0.9% 1,000 ML ONE (04:01)
[2024-05-12 04:03] LABS: PARTIAL THROMBOPLASTIN TIME 20.4 secs (24.9-33.3)
[2024-05-12 04:07] LABS: INR 1.1 (0.8-1.2); PT - PROTHROMBIN TIME 11.9 secs (9.9-12.6)
[2024-05-12] MEDS: AMPICILLIN/SULBACTAM 3 GM in SODIUM CHLORIDE 0.9% MINIBAG 100 ML IV ONE (04:07)
[2024-05-12] MEDS: diphenhydrAMINE INJ 50 MG/ML VIAL IVP SCH (04:51)
[2024-05-12] MEDS: LACTATED RINGERS 500 ML IV ONE (08:35)
[2024-05-12] MEDS ORDERED: CHERRY SYRUP 10 ML UDC PO ONE (08:54)
[2024-05-12 09:00] LABS: HCT - HEMATOCRIT 26.9 % (37.0-47.0); MEAN CORPUSCULAR HEMOGLOBIN 30.4 pg (27.0-31.0); MEAN CORPUSCULAR HGB CONC 33.5 g/dL (32.0-36.0); MEAN CORPUSCULAR VOLUME 90.9 fL (81.0-99.0); MEAN PLATELET VOLUME 11.2 fL (7.9-10.8); RED BLOOD COUNT 2.96 10^6/uL (4.20-5.40); RED CELL DISTRIBUTION WIDTH 13.3 % (12.0-15.0); WHITE BLOOD COUNT 14.5 x10^3/uL (4.8-10.8)
[2024-05-12] MEDS: DOCUSATE SODIUM 100 MG CAPSULE PO SCH (09:00)
[2024-05-12] MEDS: METHYLERGONOVINE 0.2 MG/ML VIAL PO SCH (09:01)
[2024-05-12] MEDS: IBUPROFEN 600 MG TABLET PO PRN (09:57)
[2024-05-12 16:11] LABS: HCT - HEMATOCRIT 23.3 % (37.0-47.0); MEAN CORPUSCULAR HGB CONC 34.3 g/dL (32.0-36.0); MEAN CORPUSCULAR VOLUME 90.3 fL (81.0-99.0); MEAN PLATELET VOLUME 10.7 fL (7.9-10.8); RED BLOOD COUNT 2.58 10^6/uL (4.20-5.40); RED CELL DISTRIBUTION WIDTH 13.8 % (12.0-15.0); WHITE BLOOD COUNT 12.9 x10^3/uL (4.8-10.8)
[2024-05-12] MEDS ORDERED: SODIUM CHLORIDE 0.9% 1,000 ML IV SCH (18:00)
[2024-05-12] MEDS: SIMETHICONE CHEW 80 MG TABLET PO PRN (18:10)
[2024-05-12] MEDS: diphenhydrAMINE 25 MG CAPSULE PO ONE (18:10)
--- NOTE | 2024-05-12 21:03 | PROVIDER PROGRESS NOTE ---
Subjective Subjective Subjective: feeling ok. nauseated when eating. able to get up to bathroom and void. arms feel too weak to hold her baby. bleeding seems normal for PP flow now. normal cramping. no BM. some gas in upper abdomen. Current Medications Current Medications Current Medications: Current Medications Generic Name Dose Route Start Last Admin Trade Name Freq PRN Reason Stop Dose Admin Acetaminophen 1,000 mg 05/11/24 22:06 05/12/24 16:56 Acetaminophen 500 Mg Tablet PO 1,000 mg Q8HR PRN Administration Mild Pain or Fever>38C(100.4F) Diphenhydramine HCl 25 mg 05/12/24 04:00 05/12/24 04:51 Diphenhydramine Inj 50 Mg/Ml Vial IVP 25 mg .ONCE MELIA Administration Docusate Sodium 100 mg 05/12/24 09:00 05/12/24 09:00 Docusate Sodium 100 Mg Capsule PO 100 mg BID MELIA Administration Hydralazine HCl 10 mg 05/11/24 22:06 Hydralazine Inj 20 Mg/Ml Vial IVP .ONCE PRN SBP> or= 160 OR DBP> or= 110 Protocol Hydralazine HCl 5 - 10 mg 05/11/24 22:06 Hydralazine Inj 20 Mg/Ml Vial IVP Q20M PRN SBP >=160 and/or DBP >=110 Protocol Sodium Chloride 1,000 mls @ 0 mls/hr 05/12/24 18:00 Normal Saline 0.9% IV .Q0M MELIA TKO Ibuprofen 600 mg 05/11/24 22:06 05/12/24 16:55 Ibuprofen 600 Mg Tablet PO 600 mg Q6HR PRN Administration Moderate Pain (Level 4-6) Labetalol HCl 20 - 80 mg 05/11/24 08:46 Labetalol 20 Mg/4 Ml Syringe IVP Q10M PRN SBP> or= 160 OR DBP> or= 110 Protocol Labetalol HCl 20 mg 05/11/24 08:46 Labetalol 20 Mg/4 Ml Syringe IVP .ONCE PRN SBP> or= 160 OR DBP> or= 110 Protocol Labetalol HCl 20 - 40 mg 05/11/24 08:46 Labetalol 20 Mg/4 Ml Syringe IVP Q10M PRN SBP> or= 160 OR DBP> or= 110 Protocol Labetalol HCl 20 - 80 mg 05/11/24 22:06 Labetalol 5 Mg/1 Ml 20 Ml Mdv IVP Q10M PRN SBP> or= 160 OR DBP> or= 110 Protocol Labetalol HCl 20 - 40 mg 05/11/24 22:06 Labetalol 20 Mg/4 Ml Syringe IVP Q10M PRN SBP> or= 160 OR DBP> or= 110 Protocol Labetalol HCl 20 mg 05/11/24 22:06 Labetalol 20 Mg/4 Ml Syringe IVP .ONCE PRN SBP >=160 and/or DBP >=110 Protocol Nifedipine 10 - 20 mg 05/11/24 22:06 Nifedipine 10 Mg Capsule PO Q20M PRN SBP >=160 and/or DBP >=110 Protocol Simethicone 80 mg 05/11/24 22:06 05/12/24 18:10 Simethicone Chew 80 Mg Tablet PO 80 mg TID PRN Administration Gas Sodium Chloride 10 ml 05/12/24 03:30 Sodium Chloride Flush 0.9% 10 Ml Syringe IVP PRN PRN NEEDED PER PROVIDER ORDERS Objective Vital Signs/Intake & Output Vital Signs: Vital Signs x48h Temp Pulse Resp BP Pulse Ox 05/12/24 19:12 112/56 L 05/12/24 18:50 37.3 C 116 H 16 110/55 L 98 05/12/24 18:32 37.1 C 109 H 16 113/64 98 05/12/24 18:00 37.1 C 111 H 16 113/64 98 Intake & Output: Intake & Output 05/09/24 05/10/24 05/11/24 05/12/24 23:59 23:59 23:59 23:59 Intake Total 1400 / 1400 420 / 420 Output Total 750 / 750 970 / 970 Balance 650 / 650 -550 / -550 Weight (kg) 238 lb 2.011 oz Objective General Appearance: positive No acute distress and Other (skin not pale. abdomen soft. fundus firm, minimally tender. ) Lab Results 05/12/24 16:04 Other Labs: Lab Results x24hrs 05/12/24 05/12/24 05/12/24 Range/Units 16:04 08:54 03:50 WBC 12.9 H 14.5 H 14.0 H (4.8-10.8) x10^3/uL RBC 2.58 L 2.96 L 2.93 L (4.20-5.40) 10^6/uL Hgb 8.0 L 9.0 L 8.7 L (12.0-16.0) g/dL Hct 23.3 L 26.9 L 26.7 L (37.0-47.0) % MCV 90.3 90.9 91.1 (81.0-99.0) fL MCH 31.0 30.4 29.7 (27.0-31.0) pg MCHC 34.3 33.5 32.6 (32.0-36.0) g/dL RDW 13.8 13.3 12.9 (12.0-15.0) % Plt Count 196 211 204 (130-450) 10^3/uL MPV 10.7 11.2 H 10.8 (7.9-10.8) fL PT 11.9 (9.9-12.6) secs INR 1.1 (0.8-1.2) APTT 20.4 L (24.9-33.3) secs Fibrinogen 503 H (220-496) mg/dL Blood Type Antibody Screen Crossmatch IS Only 05/11/24 Range/Units 09:00 WBC (4.8-10.8) x10^3/uL RBC (4.20-5.40) 10^6/uL Hgb (12.0-16.0) g/dL Hct (37.0-47.0) % MCV (81.0-99.0) fL MCH (27.0-31.0) pg MCHC (32.0-36.0) g/dL RDW (12.0-15.0) % Plt Count (130-450) 10^3/uL MPV (7.9-10.8) fL PT (9.9-12.6) secs INR (0.8-1.2) APTT (24.9-33.3) secs Fibrinogen (220-496) mg/dL Blood Type A POSITIVE Antibody Screen NEGATIVE Crossmatch IS Only See Detail Assessment/Plan Problem List (1) hemorrhage: Impression: blood count still low and she is symptomatic. will give second unit of blood. Shoudl be able to go home tomorrow. Qualifiers: hemorrhage type: third-stage Qualified Code(s): O72.0 - Third-stage hemorrhage
[2024-05-13 00:35] VITALS: TEMP 98.4
--- NOTE | 2024-05-13 11:11 | Discharge Summary ---
Discharge Summary Admit Date: 05/11/24 Discharge Date: 05/13/24 Discharging Provider: Alex Garrido MD HOSPITAL COURSE Hospital Course: Admission Diagnosis: - SIUP at 39w4d - GBS+ - AMA - BMI 39 - Rh + - Rubella imune - Varicella immune Discharge Diagnosis: - Same, delivered - Shoulder dystocia - hemorrhage - Anemia of acute blood loss Procedures: transfusion 2u pRBCs Hospital Course: Ana is a 34 yo at 39w4d who was admitted for IOL. She received pitocin followed by AROM. She had an which was complicated by shoulder dystocia and EBL of 600cc, followed by PPH several hours later where retain placenta was removed (suspected undiagnosed accessory lobe). She received antibiotics for manual extraction of placenta and was given oral methergine. Total blood loss 2500cc. She received 2units of pRBCs. Condition on Discharge: SUBJECTIVE: She reports that she is feeling better this morning. Has been up and going to the bathroom, denies dizziness, SOB. She is baby. She report bleeding seems appropriate this morning, like a period. She is urinating and tolerating regular diet without difficulty. Feels ready to go home this morning. Has oral iron at home. OBJECTIVE: Vital signs reviewed GENERAL: NAD CHEST: non labored respirations ABD: soft, non tender, fundus firm EXT: trace lower extremity edema; No evidence of DVT LAB & IMAGING STUDIES: See below PLAN: Plan for discharge home with follow up in clinic in 1 week Reviewed home care instructions and medications. Patient counseled regarding signs and symptoms of infection, excessive bleeding, vaginal rest and activity restrictions. Contraceptive plans to be formalized at visit. Discussed that additional support is available in our clinic if needed. Discussed home medications with OTC tylenol, ibuprofen, stool softener, as well as oral iron supplementation, one tablet, every other day, for at least the next 2 months. ALLERGIES Allergies Allergy/AdvReac Type Severity Reaction Status Date / Time apricot kernel oil Allergy Unknown Unknown Verified 04/10/24 10:12 venom-wasp Allergy Anaphylaxis Verified 04/10/24 10:12 APPLES Allergy Unknown Unknown Uncoded 04/10/24 10:12 BANANAS Allergy Unknown Unknown Uncoded 04/10/24 10:12 MEDICATIONS Ambulatory Orders Medication Instructions Recorded Confirmed vits no.126-ferrous fum 1 tab PO QDAY 02/19/24 05/11/24 28 mg iron-folic acid 800 mcg tablet (Classic ) ferrous sulfate 325 mg (65 mg 325 mg PO .every other day 03/06/24 05/11/24 iron) tablet LABS 05/12/24 16:04 FOLLOW UP [facility] TIME SPENT Time Spent in Discharge (Minutes): 20 Discharge Plan Discharge Patient Disposition: Home, Self Care Prescriptions: Continued Classic 28 mg iron- 800 mcg tablet 1 tab PO QDAY ferrous sulfate 325 mg (65 mg iron) tablet 325 mg PO .every other day Discontinued aspirin 81 mg tablet,delayed release (DR/EC) 81 mg PO DAILY Patient Comments: TAKE ONE TABLET BY MOUTH ONE TIME DAILY starting at 12 weeks for remainder of . Print Language: [place] Patient Instructions: Vaginal After, Depression , Change Expect Parents Follow-up Care: Doris Neumann MD [Provider Admit Priv/Credential] - 1 Week ( Appt with Dr. Neumann on at 10:30 am)
[2024-05-13 11:21] VITALS: BP 111/60; O2SAT 100
--- NOTE | 2024-05-13 15:15 | Labor Flowsheet ---
Labor Flowsheet Datetime Report Generated by CPN: 05/13/2024 15:15 Datetime: 05/13/2024 02:50 VITAL SIGNS NBP Sys/Josefa/Mean (mmHg): 105 : 64 : 74 Pulse: 83 LaborFlag: Labor Datetime: 05/12/2024 18:54 SpO2 (%): 98 Datetime: 05/11/2024 22:10 Respirations: 18 Temperature (C): 37.3 Datetime: 05/11/2024 21:29 Stage 2 Comments: pitocin bolusing per verbal order from Dr. Neumann Datetime: 05/11/2024 21:24 UTERINE ACTIVITY Monitor Mode: External Frequency (min): 1-2 Quality: Strong Duration (sec): 60-80 Pattern: Normal: <= 5 Contractions in 10 Minutes Resting Tone (Palpate): Relaxed ASSESSMENT A Monitor Mode: External US FHR Baseline Rate : 140 Variability: Moderate 6-25 bpm Decelerations: Variable Category: Category II Comments: MD and RN continuously at bedside and monitoring FHR/toco q5mins during pushing phase Oxygen Method: Room Air Datetime: 05/11/2024 21:15 Accelerations: 15X15 Datetime: 05/11/2024 21:08 STAGE 2 Pushing: Coached on Pushing Pushing Position: Pushing with Contractions; Pushing Lithotomy Datetime: 05/11/2024 21:03 Patient Care Comments: saet up for delivery Datetime: 05/11/2024 20:59 VAGINAL EXAM Dilatation (cm): 10.0 Exam by: Dr. Neumann Datetime: 05/11/2024 20:34 I/O Interventions: Mijares Cath Inserted Datetime: 05/11/2024 20:18 Communication Comments: Dr. Neumann at bedside Datetime: 05/11/2024 20:01 MATERNAL ASSESSMENT Level of Consciousness: Alert Headache: Denies Nausea/Vomiting: Denies RUQ Epigastric Pain: Denies Datetime: 05/11/2024 19:40 Station: 0 Datetime: 05/11/2024 19:37 COMMUNICATION Communication: RN at Bedside; Provider at Bedside Datetime: 05/11/2024 18:40 PROCEDURE TIME OUT Procedure Verify: Correct Patient Identity; Correct Side and Site are Marked; Accurate Procedure Co nsent Form; Agreement on Procedure to be Done; Correct Patient Position ANESTHESIA Anesthesia Plans: Epidural Epidural Positioning: Sitting Datetime: 05/11/2024 18:29 Anesthesia Comments: Liz here for epidural placement Datetime: 05/11/2024 18:00 Effacement (%): 75 Datetime: 05/11/2024 16:29 Pitocin Checklist: At Least 1 Acceleration of 15 bpm x 15 Seconds in 30 Minutes or Adequate Variabi lity; No More than 1 Late Deceleration Occurred in Past 30 Minutes; No More than 2 Variable Decelerat ions > 60 Seconds in Duration and decreasing >60 bpm in 30 minutes; No More than 5 Uterine Contractio ns in 10 Minutes for any 20 Minute Interval; Uterus Palpates Soft between Contractions FHR Baseline Changes: Return to Previous Baseline PAIN Pain Presence: Intermittent Pain Type: Contraction Pain Location: Back Pain Relief Measures: Comfort Measures Pain Coping: Talking Through Contractions Patient Position/Activity: Birthing Ball Comfort Measures: Family Support Datetime: 05/11/2024 15:45 Stage of : Labor Datetime: 05/11/2024 14:16 Actions for Decelerations: IV Bolus Membrane Status: Ruptured Membranes Ruptured Date/Time: 05/11/2024 14:16 Membranes Rupture Method: Artificial Amniotic Fluid Color: Clear Amniotic Fluid Amount: Moderate Amniotic Fluid Odor: Normal Vaginal Bleeding: None Datetime: 05/11/2024 12:45 MEDICATIONS Pitocin (milliunits): Increased to @ Datetime: 05/11/2024 08:59 Cervix, Consistency: Moderate Cervix, Position: Posterior PATIENT CARE IV/Blood Work: IV Started; Labs Drawn with IV Start; IV Saline Locked Provider Reviewed Strip: Yes TEACHING Instructional Method: Verbal Plan of Care: Plan of Care Discussed; Induction Unit Routine: [place] to Room; Call Singh; Bed; Photography; Monitoring Labor/Induction: Induction Pain Management: IV Narcotics; Epidural; PRN Medications; Pain Scale/Goals; Comfort Measures Medications: Antibiotics; Pitocin Provider Notified (Name): Dr. Garrido
== END 2024-05-13 13:30 | disposition home or self-care (01) | DRG 806 ==
LOC: WFO 08:04 → FBP 08:05
PROVIDERS: ADMIT Obstetrics & Gynecology; ATTEND Obstetrics & Gynecology
DX: O90.81 Anemia of the puerperium; Z3A.39 39 weeks gestation of pregnancy; Z87.891 Personal history of nicotine dependence; Z79.899 Other long term (current) drug therapy; Z79.82 Long term (current) use of aspirin; Z37.0 Single live birth; O99.214 Obesity complicating childbirth; D62 Acute posthemorrhagic anemia; O72.0 Third-stage hemorrhage; O99.824 Streptococcus B carrier state complicating childbirth